=== PATIENT | female | born 1965 | race Caucasian/White ===

== ENCOUNTER 2018-01-03 10:44 | Emergency (ER) | payer SELFPAY ==
[~2018-01-03] VITALS: Ht 162.6 cm; Wt 64.5 kg
[2018-01-03 10:46] VITALS: BP 177/83; PULSE 123; RESP 14; TEMP 99.2; O2SAT 97
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
[2018-01-03] MEDS ORDERED: ACETAMINOPHEN 325 MG TAB PO ONE (11:15)
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
== END 2018-01-03 14:57 | disposition home or self-care (01) ==
LOC: NEPE 10:44
DX: S00.83XA Contusion of other part of head, initial encounter (principal); Y04.2XXA Assault by strike against or bumped into by another person, initial encounter
CPT/HCPCS: 70486; 99283

== ENCOUNTER 2018-01-05 06:01 | Emergency (ER) | payer SELFPAY ==
[~2018-01-05] VITALS: Ht 162.6 cm; Wt 64.0 kg
[2018-01-05 06:02] VITALS: BP 149/80; PULSE 92; RESP 16; TEMP 98; O2SAT 99
[2018-01-05 06:14] VITALS: RESP 16; O2SAT 98
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
--- NOTE | 2018-01-05 06:33 | RADRPT ---
EXAM DATE/TIME: 01/05/2018 06:21 [facility] COMPARISON: No previous studies available for comparison. INDICATIONS : Altered mental status. MEDICAL HISTORY : None. SURGICAL HISTORY : None. ENCOUNTER: Initial ACUITY: 1 day PAIN SCORE: 0/10 LOCATION: Bilateral chest FINDINGS: A single view of the chest demonstrates the lungs to be symmetrically aerated without evidence of mas s, infiltrate or effusion. The cardiomediastinal contours are unremarkable. Osseous structures are intact. CONCLUSION: No acute disease. Irvin Fontenot MD on January 05, 2018 at 6:31 Board Certified Radiologist. This report was verified electronically.
[2018-01-05] MEDS ORDERED: SODIUM CHLOR 0.9% 1000 ML INJ 1,000 ML IV ONE (06:45)
[2018-01-05] MEDS ORDERED: ACETAMINOPHEN 325 MG TAB PO ONE (06:45)
[2018-01-05] MEDS ORDERED: ONDANSETRON HCL 4 MG/2 ML VIAL IV PUSH ONE (06:45)
[2018-01-05 06:59] LABS: AUTOMATED NEUTROPHIL # 13.2 TH/MM3 (1.8-7.7); BASOPHIL # 0.1 TH/MM3 (0-0.2); BASOPHIL % 0.6 % (0.0-2.0); EOSINOPHIL % 0.1 % (0.0-4.0); HEMATOCRIT 35.4 % (35.0-46.0); LYMPH % 10.2 % (9.0-44.0); LYMPHOCYTE # 1.7 TH/MM3 (1.0-4.8); MEAN CELL VOLUME 88.4 FL (80.0-100.0); MONO % 8.7 % (0.0-8.0); MONOCYTE # 1.4 TH/MM3 (0-0.9); NEUT % 80.4 % (16.0-70.0); PLATELET COUNT 327 TH/MM3 (150-450); RED BLOOD COUNT 4.01 MIL/MM3 (4.00-5.30); WHITE BLOOD COUNT 16.4 TH/MM3 (4.0-11.0)
[2018-01-05 07:10] LABS: PROTHROMBIN TIME - PATIENT 10.1 SEC (9.8-11.6)
[2018-01-05 07:18] LABS: ALKALINE PHOSPHATASE 64 U/L (45-117); TOTAL BILIRUBIN ADULT 0.7 MG/DL (0.2-1.0); TOTAL PROTEIN 7.1 GM/DL (6.4-8.2)
[2018-01-05 07:27] LABS: ALBUMIN 3.7 GM/DL (3.4-5.0); ALT (GPT) 56 U/L (10-53); AST (GOT) 100 U/L (15-37); BICARBONATE 21.4 MEQ/L (21.0-32.0); BLOOD UREA NITROGEN 25 MG/DL (7-18); CALCIUM 8.8 MG/DL (8.5-10.1); CHLORIDE 106 MEQ/L (98-107); CREATININE 1.09 MG/DL (0.50-1.00); GLOMERULAR FILTRATION RATE 53 ML/MIN (>89); GLUCOSE,RANDOM 87 MG/DL (74-106); MAGNESIUM 2.2 MG/DL (1.5-2.5); SODIUM (NA) 138 MEQ/L (136-145)
[2018-01-05 07:40] LABS: BACTERIA, URINE MOD /hpf; BILIRUBIN, URINE NEG (NEG); BLOOD, URINE MOD (NEG); GLUCOSE,URINE NEG (NEG); KETONE, URINE 10 mg/dL (NEG); MUCUS URINE FEW /lpf (OCC); NITRITE,URINE NEG (NEG); PH, URINE 5.5 (5.0-8.5); SQUAMOUS EPITHELIAL CELL URINE 8 /hpf (0-5); URINE COLOR YELLOW (YELLW/STRAW); URINE LEUKOCYTE ESTERASE LARGE (NEG)
[2018-01-05] MEDS ORDERED: BACT800T5 PO (08:04)
[2018-01-05] MEDS ORDERED: IBUP-232 PO (08:04)
--- NOTE | 2018-01-05 08:04 | PD ---
Physical Exam Date Seen by Provider: Jan 05, 2018 Time Seen by Provider: 07:00 Narrative Patient initially seen and evaluated by Dr. Fritz, please see Dr. Fritz's note for further details. She apparently is here for headaches. Awaiting workup. Laboratory Tests Test 01/05/18 06:19 01/05/18 06:31 01/05/18 06:40 White Blood Count 16.4 TH/MM3 (4.0-11.0) Neutrophils (%) (Auto) 80.4 % (16.0-70.0) Monocytes (%) (Auto) 8.7 % (0.0-8.0) Neutrophils # (Auto) 13.2 TH/MM3 (1.8-7.7) Monocytes # (Auto) 1.4 TH/MM3 (0-0.9) Blood Urea Nitrogen 25 MG/DL (7-18) Creatinine 1.09 MG/DL (0.50-1.00) Aspartate Amino Transf (AST/SGOT) 100 U/L (15-37) Alanine Aminotransferase (ALT/SGPT) 56 U/L (10-53) Estimat Glomerular Filtration Rate 53 ML/MIN (>89) Urine Turbidity HAZY (CLEAR) Urine Protein 30 mg/dL (NEG-TRACE) Urine Ketones 10 mg/dL (NEG) Urine Occult Blood MOD (NEG) Urine Leukocyte Esterase LARGE (NEG) Urine RBC 13 /hpf (0-3) Urine WBC 122 /hpf (0-5) Urine Bacteria MOD /hpf (NONE) Urine Mucus FEW /lpf (OCC) Urine Amphetamines Screen POS (NEG) Urine Cocaine Screen POS (NEG) Urine Cannabinoids Screen POS (NEG) Last [address] 01/05/18610 Signed Impressions: Service Date/Time: Friday, January 05, 2018 06:21 - CONCLUSION: No acute disease. Irvin Fontenot MD Chest X-Ray 01/05/18610 Signed Impressions: Service Date/Time: Friday, January 05, 2018 06:21 - CONCLUSION: No acute disease. Irvin Fontenot MD CT of the brain is negative. Patient had significant leukocytosis and a UTI which is suspect is worsening her headaches. She has no focal neurological deficits. At this point, my plan would be to release her with follow-up to primary care physician and treatment for UTI. Return for worsening in symptoms as necessary. The plan has been discussed with her and she states understanding. She also has several substances on board. Data Data Last Documented VS Vital Signs Date Time Temp Pulse Resp B/P (MAP) Pulse Ox O2 Delivery O2 Flow Rate FiO2 01/05/18 06:14 16 98 Room Air 01/05/18 06:12 95 01/05/18 06:02 98.0 149/80 (103) Orders Orders Electrocardiogram (01/05/18 06:11) Complete Blood Count With Diff (01/05/18 06:11) Comprehensive Metabolic Panel (01/05/18 06:11) Prothrombin Time / Inr (Pt) (01/05/18 06:11) Act Partial Throm Time (Ptt) (01/05/18:11) Lipase (01/05/18 06:11) Urinalysis - C+S If Indicated (01/05/18 06:11) Magnesium (Mg) (01/05/18 06:11) Ammonia (01/05/18 06:11) Chest, Single Ap (01/05/18 06:11) Ct Brain W/O Iv Contrast(Rout) (01/05/18 06:11) Iv Access Insert/Monitor (01/05/18 06:11) Ecg Monitoring (01/05/18 06:11) Oximetry (01/05/18 06:11) Drug Screen, Random Urine (01/05/18 06:11) Alcohol (Ethanol) (01/05/18 06:11) Ed Urine Pregnancytest Poc (01/05/18 06:11) Sodium Chlor 0.9% 1000 Ml Inj (Ns 1000 M (01/05/18 06:45) Acetaminophen (Tylenol) (01/05/18 06:45) Ondansetron Inj (Zofran Inj) (01/05/18 06:45) Urine Culture (01/05/18 06:40) Labs Laboratory Tests Test 01/05/18 06:19 01/05/18 06:31 01/05/18 06:40 White Blood Count 16.4 TH/MM3 Red Blood Count 4.01 MIL/MM3 Hemoglobin 12.0 GM/DL Hematocrit 35.4 % Mean Corpuscular Volume 88.4 FL Mean Corpuscular Hemoglobin 30.0 PG Mean Corpuscular Hemoglobin Concent 34.0 % Red Cell Distribution Width 14.0 % Platelet Count 327 TH/MM3 Mean Platelet Volume 8.0 FL Neutrophils (%) (Auto) 80.4 % Lymphocytes (%) (Auto) 10.2 % Monocytes (%) (Auto) 8.7 % Eosinophils (%) (Auto) 0.1 % Basophils (%) (Auto) 0.6 % Neutrophils # (Auto) 13.2 TH/MM3 Lymphocytes # (Auto) 1.7 TH/MM3 Monocytes # (Auto) 1.4 TH/MM3 Eosinophils # (Auto) 0.0 TH/MM3 Basophils # (Auto) 0.1 TH/MM3 CBC Comment DIFF FINAL Differential Comment Prothrombin Time 10.1 SEC Prothromb Time International Ratio 1.0 RATIO Activated Partial Thromboplast Time 26.8 SEC Blood Urea Nitrogen 25 MG/DL Creatinine 1.09 MG/DL Random Glucose 87 MG/DL Total Protein 7.1 GM/DL Albumin 3.7 GM/DL Calcium Level 8.8 MG/DL Magnesium Level 2.2 MG/DL Alkaline Phosphatase 64 U/L Aspartate Amino Transf (AST/SGOT) 100 U/L Alanine Aminotransferase (ALT/SGPT) 56 U/L Total Bilirubin 0.7 MG/DL Sodium Level 138 MEQ/L Potassium Level 3.8 MEQ/L Chloride Level 106 MEQ/L Carbon Dioxide Level 21.4 MEQ/L Anion Gap 11 MEQ/L Estimat Glomerular Filtration Rate 53 ML/MIN Lipase 73 U/L Ethyl Alcohol Level LESS THAN 3 MG/DL Ammonia 30 MCMOL/L Urine Color YELLOW Urine Turbidity HAZY Urine pH 5.5 Urine Specific [place] 1.028 Urine Protein 30 mg/dL Urine Glucose (UA) NEG mg/dL Urine Ketones 10 mg/dL Urine Occult Blood MOD Urine Nitrite NEG Urine Bilirubin NEG Urine Urobilinogen LESS THAN 2.0 MG/DL Urine Leukocyte Esterase LARGE Urine RBC 13 /hpf Urine WBC 122 /hpf Urine Squamous Epithelial Cells 8 /hpf Urine Bacteria MOD /hpf Urine Mucus FEW /lpf Microscopic Urinalysis Comment CULTURE INDICATED Urine Opiates Screen NEG Urine Barbiturates Screen NEG Urine Amphetamines Screen POS Urine Benzodiazepines Screen NEG Urine Cocaine Screen POS Urine Cannabinoids Screen POS MDM Medical Record Reviewed: Yes Supervised Visit with SAMANTHA: No Diagnosis Primary Impression: UTI (urinary tract infection) Additional Impressions: Headache Polysubstance (excluding opioids) dependence, daily use Med/Other Pt SpecificInfo: Prescription(s) given Scripts Ibuprofen (Ibuprofen) 600 Mg Tab 600 MG PO Q6H Y for Pain/Inflammation, #20 TAB 0 Refills Prov: Andrés Romero MD 01/05/18 Sulfamethoxazole-Trimethoprim (Bactrim DS) 800-160 Mg Tab 1 TAB PO BID for Infection, #14 TAB 0 Refills Prov: Andrés Romero MD 01/05/18 Disposition: 01 DISCHARGE HOME Condition: Stable Andrés Romero MD Jan 05, 2018 08:04
[2018-01-05 08:49] VITALS: BP 140/85; PULSE 82; RESP 16; O2SAT 98
--- NOTE | 2018-01-05 10:54 | EKG ---
Date Performed: 01/05/2018 Time Performed: 06:08:12 PTAGE: 52 years EKG: Sinus rhythm NORMAL ECG NO PREVIOUS TRACING DOCTOR: Yrn Ocampo Interpretating Date/Time 01/05/2018 10:50:44
== END 2018-01-05 09:18 | disposition home or self-care (01) ==
LOC: NEPE 06:01
DX: R41.82 Altered mental status, unspecified (principal); R44.1 Visual hallucinations; N39.0 Urinary tract infection, site not specified; R51 Headache; F19.20 Other psychoactive substance dependence, uncomplicated; F17.210 Nicotine dependence, cigarettes, uncomplicated
CPT/HCPCS: 70450; 71045; 80053; 80307; 81001; 82140; 83690; 83735; 84703; 85025; 85610; 85730; 87086; 93005; 96361; 96374; 99285; J2405; J7030